=== PATIENT | female | born 1995 | race Caucasian/White ===

== ENCOUNTER 2019-02-10 19:00 | Emergency (ER) | payer OTHER ==
[2019-02-10 19:04] VITALS: BMI 36.6
[2019-02-10 19:07] VITALS: RESP 18
--- NOTE | 2019-02-10 19:17 | ED PDOC ---
Arrival/HPI <Danny Ramos - Last Filed: 02/10/19 21:34> - General Historian: Patient - History of Present Illness Narrative History of Present Illness (Text): 02/10/19 19:14 23yr old female with no significant pmh presents complaining of generalized bodyaches and sore throat since this morning. pt states she developed a cold sore today. pt states she has applied an otc medication for the cold sore and has been drinking pedialyte today. Patient denies taking any pain medications to relieve her generalized body aches. pt denies cough. no dizziness. pt c/o fatigue. pt denies abdominal pain. no urinary symptoms. no cp or sob. no sick contacts. pt c/o subjective fevers at home. no other complaints. Time/Duration: 24 hours Symptom Onset: Sudden Symptom Course: Unchanged Activities at Onset: Light Context: Home <Monika Ortega - Last Filed: 02/10/19 23:20> - General Chief Complaint: Weakness/Neurological Deficit Time Seen by Provider: 02/10/19 19:01 Past Medical History - Provider Review Nursing Documentation Reviewed: Yes - Travel History Have you recently traveled outside [place] w/in the past 3 mons?: No - Infectious Disease Hx of Infectious Diseases: None - Psychiatric Hx Substance Use: No <Monika Ortega - Last Filed: 02/10/19 23:20> Family/Social History - Physician Review Nursing Documentation Reviewed: Yes Family/Social History: Unknown Family HX Smoking Status: Never Smoked Hx Alcohol Use: No Hx Substance Use: No <Monika Ortega - Last Filed: 02/10/19 23:20> Allergies/Home Meds <Danny Ramos - Last Filed: 02/10/19 21:34> <Monika Ortega - Last Filed: 02/10/19 23:20> Allergies/Adverse Reactions: Allergies No Known Allergies Allergy (Verified 02/10/19 19:04) Review of Systems - Physician Review All systems were reviewed & negative as marked: Yes - Review of Systems Constitutional: Fatigue. absent: Fevers ENT: Sore Throat, Sinus Congestion Respiratory: absent: SOB, Cough Cardiovascular: absent: Chest Pain, Palpitations Gastrointestinal: absent: Abdominal Pain, Diarrhea, Nausea, Vomiting Genitourinary Female: absent: Dysuria, Frequency, Hematuria Musculoskeletal: Other (generalized body aches). absent: Arthralgias, Back Pain, Neck Pain Skin: absent: Rash, Pruritis Neurological: absent: Headache, Dizziness Psychiatric: absent: Anxiety, Depression <Monika Ortega - Last Filed: 02/10/19 23:20> Physical Exam Vital Signs Temp Pulse Resp BP Pulse Ox 02/10/19 21:02 98.2 F 87 18 153/111 H 100 02/10/19 19:04 99.2 F 112 H 18 175/109 H 95 <Danny Ramos - Last Filed: 02/10/19 21:34> Vital Signs Reviewed: Yes Vital Signs Temp Pulse Resp BP Pulse Ox 02/10/19 19:04 99.2 F 112 H 18 175/109 H 95 Temperature: Afebrile Blood Pressure: Hypertensive Pulse: Tachycardic Respiratory Rate: Normal Appearance: Positive for: Well-Appearing, Non-Toxic, Comfortable Pain Distress: Mild Mental Status: Positive for: Alert and Oriented X 3 - Systems Exam Head: Present: Atraumatic, Normocephalic Pupils: Present: PERRL Extroacular Muscles: Present: EOMI Conjunctiva: Present: Normal Ears: Present: Normal, NORMAL TM. No: Erythema Mouth: Present: Moist Mucous Membranes. No: Normal Lips (blister noted to lower lip) Pharnyx: Present: Normal. No: ERYTHEMA, EXUDATE, TONSILS ENLARGED Nose (External): Present: Atraumatic Nose (Internal): Present: Normal Inspection, Engorged, Rhinorrhea, Other (nasal congestion) Neck: Present: Normal Range of Motion, Trachea Midline. No: Lymphadenopathy Respiratory/Chest: Present: Clear to Auscultation, Good Air Exchange. No: Respiratory Distress, Accessory Muscle Use Cardiovascular: Present: Regular Rate and Rhythm, Normal S1, S2. No: Murmurs Abdomen: No: Tenderness, Distention, Peritoneal Signs, Rebound, Guarding Back: Present: Normal Inspection Upper Extremity: Present: Normal Inspection. No: Cyanosis, Edema Lower Extremity: Present: Normal Inspection. No: Edema Neurological: Present: GCS=15, Speech Normal Skin: Present: Warm, Dry, Normal Color Psychiatric: Present: Alert, Oriented x 3 <Monika Ortega - Last Filed: 02/10/19 23:20> Medical Decision Making - Lab Interpretations Lab Results: Total Bilirubin 0.2 mg/dL (0.2-1.3) 02/10/19 20:20 AST 39 U/L (14-36) H 02/10/19 20:20 ALT 32 U/L (7-56) 02/10/19 20:20 Alkaline Phosphatase 74 U/L (38-126) 02/10/19 20:20 Total Protein 8.1 g/dL (5.8-8.3) 02/10/19 20:20 Albumin 4.2 g/dL (3.0-4.8) 02/10/19 20:20 Globulin 3.9 gm/dL 02/10/19 20:20 Albumin/Globulin Ratio 1.1 (1.1-1.8) 02/10/19 20:20 Urine Color Light yellow (YELLOW) 02/10/19 19:30 Urine Appearance Clear (CLEAR) 02/10/19 19:30 Urine pH 7.0 (4.7-8.0) 02/10/19 19:30 Ur Specific [place] 1.010 (1.005-1.035) 02/10/19 19:30 Urine Protein Trace mg/dL (<30 mg/dL) H 02/10/19 19:30 Urine Glucose (UA) 250 mg/dL (NEGATIVE) H 02/10/19 19:30 Urine Ketones Negative mg/dL (NEGATIVE) 02/10/19 19:30 Urine Blood Negative (NEGATIVE) 02/10/19 19:30 Urine Nitrate Negative (NEGATIVE) 02/10/19 19:30 Urine Bilirubin Negative (NEGATIVE) 02/10/19 19:30 Urine Urobilinogen 0.2 E.U./dL (<1 E.U./dL) 02/10/19 19:30 Ur Leukocyte Esterase Negative Jaime/uL (NEGATIVE) 02/10/19 19:30 Urine RBC None /hpf (0-2) 02/10/19 19:30 Urine WBC None /hpf (0-6) 02/10/19 19:30 Ur Epithelial Cells 1 - 3 /hpf (0-5) 02/10/19 19:30 - Medication Orders Current Medication Orders: Discontinued Medications Acetaminophen (Tylenol 325mg Tab) 975 mg PO STAT STA Stop: 02/10/19 19:28 Last Admin: 02/10/19 19:36 Dose: 975 mg MAR Pain/Vitals Document 02/10/19 19:36 RG (Rec: 02/10/19 19:39 RG [id number]) Location Pain Location Body Site Generalized Sodium Chloride (Sodium Chloride 0.9%) 1,000 mls @ 999 mls/hr IV .Q1H1M STA Stop: 02/10/19 21:05 Last Admin: 02/10/19 20:20 Dose: 999 mls/hr eMAR Start Stop Document 02/10/19 20:20 RG (Rec: 02/10/19 20:36 RG [id number]) Intravenous Solution Start Date 02/10/19 Start Time 20:20 <Danny Ramos - Last Filed: 02/10/19 21:34> ED Course and Treatment: 02/10/19 19:13 Patient is nontoxic well-appearing. C/o flu-like symptoms General body aches, sore throat. Patient found to be hypertensive in the emergency room. Patient states that she has been told multiple times That she has been hypertensive but she states it is only when she is sick and then the blood pressure goes down when she is healthy again. pt states she has never followed up with PMD for this and states she currently doesnt have a PMD. tylenol PO UA: Positive glucose no leukocytes. Patient spilling glucose into the urine will check basic labs. CBC: Within normal limits CMP: Glucose is 216. rapid flu; negative Rapid strep negative Tamiflu po Patient reassessment: Pt feeling better; vitals stable. Patient still with slightly elevated blood pressure. discussed all results with patient. I advised the patient of elevated blood pressure and elevated glucose levels. I advised the patient that she must follow-up with a primary care physician for reevaluation of her blood pressure. Patient was advised that she must follow-up with a primary care physician fly albarraning her elevated glucose levels and she will need to have fasting blood test to confirm diabetes since the patient ate prior to this test. Patient was advised to take Tamiflu twice daily. Patient was advised to increase fluids. Patient was advised to exercise and eat healthier. Patient was advised to use Abreva for her fever blister. Patient verbalizes understanding of discharge instructions and need for immediate followup. all aspects of this case were discussed the attending of record. IMPRESSION; Influenza, elevated blood pressure, elevated glucose Motrin one tablet every 6 hours as needed for pain/fever reduction Tamiflu: 1 capsule twice daily x5 days Increase fluids Followup with primary care physician the next 2 days regarding elevated blood pressure and elevated glucose level. Return if symptoms worsen persist or if new symptoms develop: Continued high fevers, dizziness, weakness, chest pain or shortness of breath vomiting/diarrhea, or if any other concerning symptoms develop Reassessment Condition: Re-examined, Improved <Monika Ortega - Last Filed: 02/10/19 23:20> - PA / [employer] / Resident Statement MD/DO has reviewed & agrees with the documentation as recorded. <Danny Ramos - Last Filed: 02/10/19 21:34> - Scribe Statement The provider has reviewed the documentation as recorded by the Roberta Emery All medical record entries made by the Roberta were at my direction and personally dictated by me. I have reviewed the chart and agree that the record accurately reflects my personal performance of the history, physical exam, medical decision making, and the department course for this patient. I have also personally directed, reviewed, and agree with the discharge instructions and disposition. <Monika Ortega - Last Filed: 02/10/19 23:20> Disposition/Present on Arrival <Danny Ramos - Last Filed: 02/10/19 21:34> - Present on Arrival Any Indicators Present on Arrival: No History of DVT/PE: No History of Uncontrolled Diabetes: No Urinary Catheter: No History of Decub. Ulcer: No History Surgical Site Infection Following: None - Disposition Have Diagnosis and Disposition been Completed?: Yes Disposition Time: 22:50 Patient Plan: Discharge <Monika Ortega - Last Filed: 02/10/19 23:20> - Disposition Diagnosis: Flu-like symptoms, Elevated BP without diagnosis of hypertension, Elevated glucose level, Cold sore Disposition: HOME/ ROUTINE Patient Problems: Current Active Problems Problem Status Onset Cold sore Acute Elevated BP without diagnosis of hypertension Acute Elevated glucose level Acute Flu-like symptoms Acute Condition: GOOD Discharge Instructions (ExitCare): Controlling Your Blood Pressure Through Lifestyle, Cold Sores (Oral Herpes) (DC), Flu, Adult (DC) Additional Instructions: Motrin one tablet every 6 hours as needed for pain/fever reduction Tamiflu: 1 capsule twice daily x5 days Increase fluids Followup with primary care physician the next 2 days regarding elevated blood pressure and elevated glucose level. Return if symptoms worsen persist or if new symptoms develop: Continued high fevers, dizziness, weakness, chest pain or shortness of breath vomiting/diarrhea, or if any other concerning symptoms develop Prescriptions: Ibuprofen [Motrin] 600 mg PO Q6H PRN #20 tab PRN Reason: pain/fever reduction Oseltamivir Cap [Tamiflu] 75 mg PO BID #10 cap Referrals: Carmen Mcmahan MD [Medical Doctor] - Follow up with primary [facility] [Outside] - Follow up with primary Cam,Radha Raphael MD [Medical Doctor] - Follow up with primary Forms: [employer] ([place]), WORK NOTE
[2019-02-10 19:45] LABS: URINE APPEARANCE CLEAR (CLEAR); URINE BILIRUBIN NEGATIVE (NEGATIVE); URINE BLOOD NEGATIVE (NEGATIVE); URINE COLOR LIGHT YELLOW (YELLOW); URINE GLUCOSE (UA) 250 mg/dL (NEGATIVE); URINE LEUKOCYTE ESTERASE NEGATIVE Leu/uL (NEGATIVE); URINE PROTEIN TRACE mg/dL (<30 mg/dL); URINE UROBILINOGEN 0.2 E.U./dL (<1 E.U./dL)
[2019-02-10 19:59] LABS: INFLUENZA A B NEGATIVE FOR FLU A/B (NEGATIVE)
[2019-02-10] MEDS ORDERED: Sodium Chloride 0.9% 1,000 ML IV STA (20:05)
[2019-02-10 20:41] LABS: BASO # 0.02 K/mm3 (0.0-2.0); BASO % 0.3 % (0.0-3.0); EOS # 0.1 (0.0-0.7); EOS % 0.7 % (1.5-5.0); HEMOGLOBIN 14.8 g/dL (12.0-16.0); LYMPH % 27.9 % (22.0-35.0); MEAN CORPUSCULAR HEMOGLOBIN 27.9 pg (25.0-35.0); MEAN CORPUSCULAR HGB CONC 33.6 g/dl (31.0-37.0); MEAN PLATELET VOLUME 11.4 fl (7.0-11.0); MONO # 0.7 (0.1-0.6); MONO % 10.3 % (1.0-6.0); RBC 5.3 10^6/uL (3.5-6.1); RED CELL DISTRIBUTION WIDTH 13.3 % (11.5-14.5); WHITE BLOOD COUNT 7.2 10^3/uL (4.5-11.0)
[2019-02-10 20:51] LABS: ALB/GLOB RATIO 1.1 (1.1-1.8); ALBUMIN 4.2 g/dL (3.0-4.8); ALT/SGPT 32 U/L (7-56); AST/SGOT 39 U/L (14-36); BLOOD UREA NITROGEN 6 mg/dL (7-21); CALCIUM 9.5 mg/dL (8.4-10.5); GFR NON-AFRICAN AMERICAN > 60
[2019-02-10 21:07] VITALS: TEMP 98.2; O2SAT 100
[2019-02-10 21:59] VITALS: BP 147/88; PULSE 90
== END 2019-02-10 23:15 | disposition home or self-care (01) ==
LOC: ED 19:00
DX: J11.1 Influenza due to unidentified influenza virus with other respiratory manifestations (principal); R03.0 Elevated blood-pressure reading, without diagnosis of hypertension; R73.9 Hyperglycemia, unspecified; B00.1 Herpesviral vesicular dermatitis
CPT/HCPCS: 80053; 81001; 81025; 85025; 87070; 87430; 87804; 96374; 99285; J1885; J7030

== ENCOUNTER 2019-02-12 11:44 | Emergency (ER) | payer MEDICAID, OTHER ==
[2019-02-12 11:44] VITALS: BMI 36.6
[2019-02-12 11:57] VITALS: TEMP 98.4
[2019-02-12] MEDS ORDERED: Sodium Chloride 0.9% 1,000 ML IV STA (13:07)
--- NOTE | 2019-02-12 13:09 | ED PDOC ---
Arrival/HPI - General Chief Complaint: Flu-like Symptoms Historian: Patient - History of Present Illness Narrative History of Present Illness (Text): 02/12/19 13:11 23 year old female, with no significant past medical history, presents to the ED complaining of flu-like symptoms. Patient reports generalized bodyaches, sore throat, weakness, headache, nausea, vomiting, and diarrhea. Patient notes she presented to ED for the same symptoms 2 days ago and was prescribed Tamiflu twice a day, which patient has been compliant with, with no improvement in sy mptoms. Patient denies any, hematuria, dysuria, chest pain, shortness of breath, dyspnea on exertion, abdominal pain, back pain, neck pain, or any other complaints. Time/Duration: < week (since Friday) Symptom Course: Unchanged Activities at Onset: Light Context: Home Past Medical History - Provider Review Nursing Documentation Reviewed: Yes - Infectious Disease Hx of Infectious Diseases: None - Psychiatric Hx Substance Use: No Family/Social History - Physician Review Nursing Documentation Reviewed: Yes Family/Social History: Unknown Family HX Smoking Status: Never Smoked Hx Alcohol Use: No Hx Substance Use: No Allergies/Home Meds Allergies/Adverse Reactions: Allergies No Known Allergies Allergy (Verified 02/16/19 21:23) Review of Systems - Physician Review All systems were reviewed & negative as marked: Yes - Review of Systems Constitutional: Normal. absent: Weight Change, Night Sweats Eyes: absent: Vision Changes, Eye Pain ENT: absent: Hearing Changes Respiratory: absent: SOB, Cough Cardiovascular: absent: Chest Pain Gastrointestinal: Diarrhea, Nausea, Vomiting. absent: Abdominal Pain Genitourinary Female: absent: Dysuria, Hematuria Musculoskeletal: absent: Back Pain Skin: absent: Rash Neurological: Headache Endocrine: absent: Diaphoresis, Polyuria Hemo/Lymphatic: absent: Adenopathy, Easy Bleeding Psychiatric: absent: Anxiety, Depression Physical Exam Vital Signs Reviewed: Yes Vital Signs Temp Pulse Resp BP Pulse Ox 02/12/19 11:57 98.4 F 102 H 18 148/99 H 98 Temperature: Afebrile Blood Pressure: Hypertensive Pulse: Tachycardic Respiratory Rate: Normal Appearance: Positive for: Well-Appearing, Non-Toxic, Comfortable Mental Status: Positive for: Alert and Oriented X 3 - Systems Exam Head: Present: Atraumatic, Normocephalic, Other (sunken eyes) Pupils: Present: PERRL Extroacular Muscles: Present: EOMI Conjunctiva: Present: Normal Mouth: No: Moist Mucous Membranes (Dry Mucous Membranes) Neck: Present: Normal Range of Motion Respiratory/Chest: Present: Clear to Auscultation, Good Air Exchange. No: Respiratory Distress, Accessory Muscle Use Cardiovascular: Present: Regular Rate and Rhythm, Normal S1, S2. No: Murmurs Abdomen: No: Tenderness, Distention, Peritoneal Signs Upper Extremity: Present: Normal Inspection. No: Cyanosis, Edema Lower Extremity: Present: Normal Inspection. No: Edema Neurological: Present: GCS=15, CN II-XII Intact, Speech Normal Skin: Present: Pale (very pale) Psychiatric: Present: Alert, Oriented x 3, Normal Insight, Normal Concentration Medical Decision Making ED Course and Treatment: 02/12/19 13:25 Impression: 23 year old female who presents to the ED for flu-like symptoms. Differential Diagnosis included but are not limited to: --Viral respiratory tract illness --PNA Plan: -- Labs -- Chest X-Ray -- Decadron Injection -- Benadryl -- Toradol -- Reglan -- IV Fluids -- Urine Culture -- Urine Test -- Rapid Flu A/B -- Urinalysis -- Reassess and disposition Prior Visits: Notes and results from previous visits were reviewed. Progress Notes: 02/12/19 07:05 Labs reviewed with leukocytosis of 15 noted with no findings on CXR, UA or electrolyte disturbances. Patient advised to stop taking initial antibiotic and start taking her Z get. She is advised to follow up with her PCP. Scripts provided and opportunity for questions given and answered. She demonstrates understanding. She is stable for discharge. - Lab Interpretations Lab Results: 02/12/19 13:12 02/12/19 13:12 Lab Results 02/12/19 13:12: Hemoglobin A1c 7.2 H 02/12/19 13:12: Influenza Typ A,B (EIA) Negative for flu a/b 02/12/19 13:12: Sodium 136, Potassium 3.8, Chloride 99, Carbon Dioxide 26, Anion Gap 15, BUN 7, Creatinine 0.6 L, Est GFR ( Amer) > 60, Est GFR (Non-Af Amer) > 60, Random Glucose 130 H, Calcium 9.2, Total Bilirubin 0.5, AST 30, ALT 25, Alkaline Phosphatase 74, Total Protein 7.9, Albumin 4.2, Globulin 3.7, Albumin/Globulin Ratio 1.1 02/12/19 13:12: WBC 15.3 H D, RBC 5.24, Hgb 14.7, Hct 43.5, MCV 83.0, MCH 28.1, MCHC 33.8, RDW 13.4, Plt Count 212, MPV 10.5, Neut % (Auto) 74.1 H, Lymph % (Auto) 15.9 L, Reynolds % (Auto) 9.9 H, Eos % (Auto) 0.0 L, Baso % (Auto) 0.1, Lymph # (Auto) 2.4, Reynolds # (Auto) 1.5 H, Eos # (Auto) 0.0, Baso # (Auto) 0.01, Absolute Neuts (auto) 11.31 H 02/12/19 13:05: Urine Color Light yellow, Urine Appearance Clear, Urine pH 6.5, Ur Specific [place] <= 1.005, Urine Protein Negative, Urine Glucose (UA) Negative, Urine Ketones Negative, Urine Blood Negative, Urine Nitrate Negative, Urine Bilirubin Negative, Urine Urobilinogen 0.2, Ur Leukocyte Esterase Small H, Urine RBC 0 - 2, Urine WBC 2 - 5, Ur Epithelial Cells 4 - 5, Urine Bacteria Trace I have reviewed the lab results: Yes - RAD Interpretation Narrative RAD Interpretations (Text): 02/12/19 15:22 Chest X-Ray IMPRESSION: No active disease. Radiology Orders: 02/12/19 13:00 CHEST PORTABLE [RAD] Stat - Medication Orders Current Medication Orders: Sodium Chloride (Sodium Chloride 0.9%) 1,000 mls @ 999 mls/hr IV .Q1H1M STA Stop: 02/12/19 14:07 Ketorolac Tromethamine (Toradol) 30 mg IVP STAT STA Stop: 02/12/19 13:08 Metoclopramide HCl (Reglan) 10 mg IVP STAT STA Stop: 02/12/19 13:08 Discontinued Medications Azithromycin (Zithromax) 500 mg PO STAT STA; Protocol Stop: 02/12/19 14:38 Last Admin: 02/12/19 14:52 Dose: 500 mg Dexamethasone (Decadron Inj) 10 mg IVP STAT STA Stop: 02/12/19 13:20 Last Admin: 02/12/19 13:33 Dose: 10 mg IVP Administration Document 02/12/19 13:33 MA (Rec: 02/12/19 13:33 MA [id number]) Charges for Administration # of IVP Administrations 1 Diphenhydramine HCl (Benadryl) 25 mg IVP STAT STA Stop: 02/12/19 13:20 Last Admin: 02/12/19 13:32 Dose: 25 mg IVP Administration Document 02/12/19 13:32 MA (Rec: 02/12/19 13:33 MA [id number]) Charges for Administration # of IVP Administrations 1 Sodium Chloride (Sodium Chloride 0.9%) 1,000 mls @ 999 mls/hr IV .Q1H1M STA Stop: 02/12/19 14:07 Last Admin: 02/12/19 13:20 Dose: 999 mls/hr eMAR Start Stop Document 02/12/19 13:20 MA (Rec: 02/12/19 13:20 MA [id number]) Intravenous Solution Start Date 02/12/19 Start Time 13:20 Ketorolac Tromethamine (Toradol) 30 mg IVP STAT STA Stop: 02/12/19 13:08 Last Admin: 02/12/19 13:20 Dose: 30 mg MAR Pain Assessment Document 02/12/19 13:20 MA (Rec: 02/12/19 13:20 MA [id number]) Pain Reassessment Is this a pain reassessment? Yes Sleep Is patient sleeping during reassessment? No Presence of Pain Presence of Pain Yes Pain Scale Used Protocol: [facility] Pain Scale Used Numeric Location Pain Location Body Infection Control Coordinator Description Intensity of Pain at present 5 Pain Behavior Grasping Site Rubbing Site Aggravating Factors Changing Position IVP Administration Document 02/12/19 13:20 MA (Rec: 02/12/19 13:20 MA [id number]) Charges for Administration # of IVP Administrations 1 Re-Assess: MAR Pain Assessment Document 02/12/19 14:20 MA (Rec: 02/12/19 14:41 MA [id number]) Pain Reassessment Is this a pain reassessment? Yes Sleep Is patient sleeping during reassessment? No Presence of Pain Presence of Pain No Pain Scale Used Protocol: PSCALES Pain Scale Used Numeric Location Pain Location Body Site Abdomen Description Description Intermittent Intensity of Pain at present 0 Metoclopramide HCl (Reglan) 10 mg IVP STAT STA Stop: 02/12/19 13:08 Last Admin: 02/12/19 13:20 Dose: 10 mg IVP Administration Document 02/12/19 13:20 MA (Rec: 02/12/19 13:20 MA [id number]) Charges for Administration # of IVP Administrations 1 - Scribe Statement The provider has reviewed the documentation as recorded by the Scribe Ignacio Graham Provider Scribe Attestation: All medical record entries made by the Scribe were at my direction and personally dictated by me. I have reviewed the chart and agree that the record accurately reflects my personal performance of the history, physical exam, medical decision making, and the department course for this patient. I have also personally directed, reviewed, and agree with the discharge instructions and disposition. Disposition/Present on Arrival - Present on Arrival Any Indicators Present on Arrival: No History of DVT/PE: No History of Uncontrolled Diabetes: No Urinary Catheter: No History of Decub. Ulcer: No History Surgical Site Infection Following: None - Disposition Have Diagnosis and Disposition been Completed?: Yes Diagnosis: Headache, Respiratory tract infection Disposition: HOME/ ROUTINE Disposition Time: 15:07 Patient Plan: Discharge Patient Problems: Current Active Problems Problem Status Onset Dehydration Acute Enteritis Acute Leukocytosis Acute UTI (urinary tract infection) Acute Condition: IMPROVED Discharge Instructions (ExitCare): Headache, Adult (DC), Bacterial Upper Respiratory Infection, Adult (DC) Print Language: GREEK Additional Instructions: All medical record entries made by the Scribe were at my direction and personally dictated by me. I have reviewed the chart and agree that the record accurately reflects my personal performance of the history, physical exam, medical decision making, and the department course for this patient. I have also personally directed, reviewed, and agree with the discharge instructions and disposition. Please STOP taking the Tamiflu and START taking the Z-Get Please return to clinic in 3-5 days Prescriptions: Azithromycin [Z-Get] 250 mg PO DAILY #6 tab Methylprednisolone [Medrol Dose Pack (21 tabs)] 4 mg PO DAILY #21 mg Referrals: Carmen Mcmahan MD [Medical Doctor] - Follow up with primary [facility] [place] [Outside] - Follow up with primary Forms: [employer] Connect ([place]), SCHOOL NOTE
[2019-02-12 13:19] LABS: PH,URINE 6.5 (4.7-8.0); URINE BILIRUBIN NEGATIVE (NEGATIVE); URINE BLOOD NEGATIVE (NEGATIVE); URINE GLUCOSE (UA) NEGATIVE (NEGATIVE); URINE LEUKOCYTE ESTERASE SMALL Leu/uL (NEGATIVE); URINE PROTEIN NEGATIVE mg/dL (<30 mg/dL); URINE UROBILINOGEN 0.2 E.U./dL (<1 E.U./dL)
[2019-02-12] MEDS ORDERED: DiphenhydrAMINE 50 mg/ml Inj IVP STA (13:19)
[2019-02-12 13:20] LABS: URINE APPEARANCE CLEAR (CLEAR); URINE COLOR LIGHT YELLOW (YELLOW)
[2019-02-12 13:32] LABS: BASO # 0.01 K/mm3 (0.0-2.0); BASO % 0.1 % (0.0-3.0); HEMOGLOBIN 14.7 g/dL (12.0-16.0); LYMPH # 2.4 (1.2-3.4); LYMPH % 15.9 % (22.0-35.0); MEAN CORPUSCULAR HEMOGLOBIN 28.1 pg (25.0-35.0); MEAN CORPUSCULAR HGB CONC 33.8 g/dl (31.0-37.0); MEAN PLATELET VOLUME 10.5 fl (7.0-11.0); MONO # 1.5 (0.1-0.6); MONO % 9.9 % (1.0-6.0); RBC 5.24 10^6/uL (3.5-6.1); RED CELL DISTRIBUTION WIDTH 13.4 % (11.5-14.5); WHITE BLOOD COUNT 15.3 10^3/uL (4.5-11.0)
[2019-02-12 13:33] LABS: URINE BACTERIA TRACE /hpf; URINE RBC 0 - 2 /hpf (0-2)
[2019-02-12 13:40] LABS: ALB/GLOB RATIO 1.1 (1.1-1.8); ALBUMIN 4.2 g/dL (3.0-4.8); ALT/SGPT 25 U/L (7-56); AST/SGOT 30 U/L (14-36); BLOOD UREA NITROGEN 7 mg/dL (7-21); CALCIUM 9.2 mg/dL (8.4-10.5); GFR NON-AFRICAN AMERICAN > 60
[2019-02-12 14:05] VITALS: RESP 16
--- NOTE | 2019-02-12 14:10 | RAD ---
Date of service: 02/12/2019 HISTORY: cough COMPARISON: No prior. TECHNIQUE: 1 view obtained. FINDINGS: LUNGS: No active pulmonary disease. PLEURA: No significant pleural effusion identified, no pneumothorax apparent. CARDIOVASCULAR: No aortic atherosclerotic calcification present. Normal cardiac size. No pulmonary vascular congestion. OSSEOUS STRUCTURES: No significant abnormalities. VISUALIZED UPPER ABDOMEN: Normal. OTHER FINDINGS: None. IMPRESSION: No active disease.
[2019-02-12 14:57] VITALS: BP 136/93; PULSE 89; O2SAT 97
== END 2019-02-12 15:22 | disposition home or self-care (01) ==
LOC: ED 11:44
DX: R51 Headache (principal); J98.8 Other specified respiratory disorders
CPT/HCPCS: 71045; 80053; 81001; 81025; 83036; 85025; 87086; 87804; 96374; 96375; 99284; J1100; J1200; J1885; J2765; J7030

== ENCOUNTER 2019-02-15 09:14 | Emergency (ER) | payer MEDICAID, OTHER ==
[2019-02-15 09:14] VITALS: BMI 36.6
[2019-02-15 09:37] VITALS: BP 139/96; RESP 18; TEMP 98.2; O2SAT 100
--- NOTE | 2019-02-15 10:10 | ED PDOC ---
Arrival/HPI - General Chief Complaint: Abnormal Skin Integrity Historian: Patient - History of Present Illness Narrative History of Present Illness (Text): 02/15/19 10:08 23 y/o female, no significant pmh, nkda, here today for the soreness on the lip x 4 days. Pt. stated that she was having sorethroat/fever/fatigue/cold sore initially, other symptoms resolved, now only remains with the cold sore. Pt. was on the tamiflu x 2 days, change to zithromax and medrodose robert now, only having painful lower lip lesion now, no night sweat, no dizziness, no change in vision, no other medical or psychological complaints. Past Medical History - Provider Review Nursing Documentation Reviewed: Yes - Infectious Disease Hx of Infectious Diseases: None - Reproductive Menopause: No - Cardiac Hx Cardiac Disorders: No - Psychiatric Hx Substance Use: No Family/Social History - Physician Review Nursing Documentation Reviewed: Yes Family/Social History: Unknown Family HX Smoking Status: Never Smoked Hx Alcohol Use: No Hx Substance Use: No Allergies/Home Meds Allergies/Adverse Reactions: Allergies No Known Allergies Allergy (Verified 02/10/19 19:04) Review of Systems - Review of Systems Constitutional: absent: Fatigue, Fevers Eyes: absent: Vision Changes ENT: absent: Hearing Changes Respiratory: absent: SOB, Cough Cardiovascular: absent: Chest Pain Gastrointestinal: absent: Abdominal Pain, Nausea, Vomiting Skin: Skin Lesions. absent: Rash, Pruritis Neurological: absent: Headache, Dizziness Psychiatric: absent: Anxiety, Depression, Suicidal Ideation Physical Exam Vital Signs Reviewed: Yes Vital Signs Temp Pulse Resp BP Pulse Ox 02/15/19 09:32 98.2 F 99 H 18 139/96 H 100 Temperature: Afebrile Blood Pressure: Hypertensive Pulse: Regular Respiratory Rate: Normal Appearance: Positive for: Well-Appearing, Non-Toxic, Comfortable Pain Distress: Moderate Mental Status: Positive for: Alert and Oriented X 3 - Systems Exam Head: Present: Atraumatic, Normocephalic Pupils: Present: PERRL Extroacular Muscles: Present: EOMI Conjunctiva: Present: Normal Mouth: Present: Moist Mucous Membranes, Normal Tounge, Normal Teeth. No: Drooling, Trismus, Normal Lips (visible lower lip visible healed lesions noted associated with lower lip healing cold sore lesion with ruptured blister) Neck: Present: Normal Range of Motion Respiratory/Chest: Present: Clear to Auscultation, Good Air Exchange. No: Respiratory Distress, Accessory Muscle Use Cardiovascular: Present: Regular Rate and Rhythm, Normal S1, S2. No: Murmurs, Tachycardic Abdomen: No: Tenderness, Distention, Peritoneal Signs, Rebound, Guarding Back: Present: Normal Inspection. No: CVA Tenderness, Midline Tenderness, Paraspinal Tenderness, Pain with Leg Raise, Decubitus Ulcer Upper Extremity: Present: Normal Inspection, Normal ROM, NORMAL PULSES, Capil ki Refill < 2s. No: Cyanosis, Edema, Deformity Lower Extremity: Present: Normal Inspection, NORMAL PULSES, Normal ROM, Neurovascularly Intact, Capillary Refill < 2 s. No: Edema, Deformity Neurological: Present: GCS=15, CN II-XII Intact, Speech Normal, Motor Func Grossly Intact, Normal Cerebellar Funct, Gait Normal, Memory Normal Skin: Present: Warm, Dry, Normal Color. No: Rashes Psychiatric: Present: Alert, Oriented x 3, Normal Insight, Normal Concentration Medical Decision Making ED Course and Treatment: 02/15/19 10:12 -HSV culture for skin is not available as I spoke to the laboratory. -Mycoplasma IGG and IGM -CBC as she had elevated CBC previously -Viscious lidocaine for pain control -Pt. had been applying abreva at home as well. 02/15/19 12:32 -Urine hcg is negative -WBC 11 from 15 -I spoke to Dr. Herring (infectious disease doctor), discussed about the case/labs results, recommend discharge home with valtrex 2gm po bid x 1 day and observed for one week. If not resolved, then she would need further work up. -Discharge home with valtrex, motrin, continue abreva, follow up with your own pmd and infectious disease doctor Dr. Herring for further evaluation within 2 days, return to the ER for any new or worsening signs or symptoms. - PA / DIRECTOR DERMATOLOGY / Resident Statement /DO has reviewed & agrees with the documentation as recorded. Disposition/Present on Arrival - Present on Arrival Any Indicators Present on Arrival: No History of DVT/PE: No History of Uncontrolled Diabetes: No Urinary Catheter: No History of Decub. Ulcer: No History Surgical Site Infection Following: None - Disposition Have Diagnosis and Disposition been Completed?: Yes Diagnosis: Cold sore Disposition: HOME/ ROUTINE Disposition Time: 12:34 Patient Plan: Discharge Patient Problems: Current Active Problems Problem Status Onset Cold sore Acute Condition: GOOD Discharge Instructions (ExitCare): Cold Sores (Oral Herpes) (DC) Additional Instructions: -Discharge home with valtrex, motrin, continue abreva, follow up with your own pmd and infectious disease doctor Dr. Herring for further evaluation within 2 days, return to the ER for any new or worsening signs or symptoms. Prescriptions: Ibuprofen [Motrin] 600 mg PO QID PRN #30 tab PRN Reason: Other Valacyclovir HCl [Valtrex] 2 gm PO BID #4 tablet Referrals: Bhavesh Herring MD [Staff Provider] - Follow up with primary [facility] [place] - Follow up with primary Forms: [facility] ([place]), WORK NOTE
[2019-02-15 11:22] LABS: BASO # 0.1 K/mm3 (0.0-2.0); BASO % 0.9 % (0.0-3.0); EOS % 0.1 % (1.5-5.0); HEMOGLOBIN 17.1 g/dL (12.0-16.0); LYMPH # 3.3 (1.2-3.4); LYMPH % 29.1 % (22.0-35.0); MEAN CELL VOLUME 82.2 fl (80.0-105.0); MEAN CORPUSCULAR HGB CONC 34.1 g/dl (31.0-37.0); MEAN PLATELET VOLUME 11.1 fl (7.0-11.0); MONO # 1.5 (0.1-0.6); MONO % 13.2 % (1.0-6.0); RBC 6.11 10^6/uL (3.5-6.1); RED CELL DISTRIBUTION WIDTH 13.4 % (11.5-14.5); WHITE BLOOD COUNT 11.5 10^3/uL (4.5-11.0)
[2019-02-15 12:44] VITALS: PULSE 92
== END 2019-02-15 12:47 | disposition home or self-care (01) ==
LOC: ED 09:14
DX: B00.1 Herpesviral vesicular dermatitis (principal)

== ENCOUNTER 2019-02-16 20:50 | Observation (INO) | payer MEDICAID, OTHER ==
[2019-02-16 20:50] VITALS: BMI 36.6
--- NOTE | 2019-02-16 21:35 | ED PDOC ---
Arrival/HPI - General Time Seen by Provider: 02/16/19 21:00 Historian: Patient - History of Present Illness Narrative History of Present Illness (Text): 02/17/19 00:14 23 y/o with no significant PMH presents to the Emergency department c/o chest and abdominal pain x 1 day. Pt drank an organic nutrient smoothie yesterday afternoon and soon after began having brown, watery, nonbloody diarrhea with associated burning epigastric pain. Pt was seen here 3 times over the last 6 days for evaluation of herpes labialis and an upper respiratory infection that was treated successfully with azithromycin. Pt taking valcyclovir, last dose this evening. Denies vomiting, palpitations, vision changes, headache, dizziness, urinary symptoms, cough, SOB, back pain, or any other associated symptoms. Past Medical History - Provider Review Nursing Documentation Reviewed: Yes - Infectious Disease Hx of Infectious Diseases: None - Cardiac Hx Cardiac Disorders: No - Psychiatric Hx Substance Use: No Family/Social History - Physician Review Nursing Documentation Reviewed: Yes Family/Social History: No Known Family HX Smoking Status: Never Smoked Hx Alcohol Use: No Hx Substance Use: No Allergies/Home Meds Allergies/Adverse Reactions: Allergies No Known Allergies Allergy (Verified 02/16/19 21:23) Review of Systems - Physician Review All systems were reviewed & negative as marked: Yes - Review of Systems Constitutional: Normal. absent: Fatigue, Fevers Eyes: Normal. absent: Vision Changes, Photophobia, Eye Pain ENT: Normal. absent: Sore Throat, Sinus Congestion Respiratory: Normal. absent: SOB, Cough Cardiovascular: Chest Pain. absent: Palpitations, Syncope Gastrointestinal: Abdominal Pain, Stool Changes, Diarrhea, Nausea, Appetite Changes. absent: Vomiting, Hematochezia, Hematemesis Genitourinary Female: Normal. absent: Dysuria, Frequency, Hematuria, Vaginal Bleeding, Vaginal Discharge Musculoskeletal: Normal. absent: Back Pain, Neck Pain Skin: Normal. absent: Rash Neurological: Normal. absent: Headache, Dizziness Endocrine: Normal. absent: Diaphoresis Physical Exam Vital Signs Reviewed: Yes Vital Signs Temp Pulse Resp BP Pulse Ox 02/16/19 21:23 98.6 F 120 H 19 153/107 H 98 Temperature: Afebrile Blood Pressure: Hypertensive Pulse: Tachycardic Respiratory Rate: Normal Appearance: Positive for: Well-Appearing, Non-Toxic, Comfortable Pain Distress: None Mental Status: Positive for: Alert and Oriented X 3 - Systems Exam Head: Present: Atraumatic, Normocephalic, Other (eyes sunken) Pupils: Present: PERRL Extroacular Muscles: Present: EOMI Conjunctiva: Present: Normal Mouth: Present: Dry. No: Normal Lips (cold sore to lower lip) Nose (External): Present: Atraumatic Nose (Internal): Present: Normal Inspection Neck: Present: Normal Range of Motion. No: Meningeal Signs Respiratory/Chest: Present: Clear to Auscultation, Good Air Exchange. No: Respiratory Distress, Accessory Muscle Use Cardiovascular: Present: Regular Rate and Rhythm, Normal S1, S2, Peripheal Pulses Present Abdomen: Present: Tenderness (generalized, worst epigastric), Normal Bowel Sounds. No: Distention, Peritoneal Signs Rectal: Present: Normal Rectal Tone. No: Occult Blood, Rectal Tenderness, Gross Blood, Hemorrhoids, Fissures, Nodule/Mass/Lesions Back: Present: Normal Inspection. No: CVA Tenderness Upper Extremity: Present: Normal Inspection, Normal ROM, NORMAL PULSES, Neurovas cularly Intact, Capillary Refill < 2s. No: Cyanosis, Edema, Temperature Abnormalties Lower Extremity: Present: Normal Inspection, NORMAL PULSES, Normal ROM, Neurovascularly Intact, Capillary Refill < 2 s. No: Edema, Temperature Abnormalties Neurological: Present: GCS=15, CN II-XII Intact, Speech Normal, Motor Func Grossly Intact, Normal Sensory Function, Gait Normal Skin: Present: Warm, Dry, Normal Color. No: Rashes Lymphatic: No: Cervical Adenopathy Psychiatric: Present: Alert, Oriented x 3, Normal Insight, Normal Concentration, Normal Affect, Normal Mood Medical Decision Making ED Course and Treatment: Initial Plan: * CBC, CMP * TSH, T4 * Lipase * Troponin * UA * EKG * CXR * CT Abd/Pelvis with IV contrast * IVF * , Maalox, Pepcid * Toradol EKG shows NSR at 93; Normal intervals; No STEMI, nonspecific ST/T wave changes Bloodwork reviewed, remarkable for elevated H/H, leukocytosis at 15, glucose elevated at 187; otherwise unremarkable UA shows UTI, rocephin ordered 01:53 CT significant for enteritis. Will seek admission for leukocytosis, UTI, dehydration. 01:58 Spoke with the medical registrar and hospitalist Dr. Mcmahan who accepted patient for inpatient admission to med/surg floor with diagnosis of dehydration, leukocytosis, UTI, and enteritis. Pt updated with change in disposition. Resting comfortably in stretcher with normal vital signs at this time. - Lab Interpretations Lab Results: 02/16/19 22:21 02/16/19 22:21 Lab Results 02/16/19 22:35: Urine Color Light red, Urine Appearance Clear, Urine pH 6.5, Ur Specific [place] <= 1.005, Urine Protein 100 H, Urine Glucose (UA) Negative, Urine Ketones Negative, Urine Blood Large H, Urine Nitrate Positive H, Urine Bilirubin Negative, Urine Urobilinogen 1.0 H, Ur Leukocyte Esterase Moderate H, Urine RBC Tntc H, Urine WBC 10 - 15 H, Ur Epithelial Cells 10 - 12 H, Urine Bacteria Small 02/16/19 22:21: Free T4 1.56, TSH 3rd Generation 0.82 02/16/19 22:21: Sodium 139, Potassium 4.3, Chloride 100, Carbon Dioxide 27, Anion Gap 16, BUN 11, Creatinine 0.5 L, Est GFR ( Amer) > 60, Est GFR (Non-Af Amer) > 60, Random Glucose 187 H, Calcium 9.5, Phosphorus 3.2, Magnesium 2.1, Total Bilirubin 0.5, AST 53 H D, ALT 31, Alkaline Phosphatase 71, Troponin I < 0.01, Total Protein 8.6 H, Albumin 4.4, Globulin 4.1, Albumin/Globulin Ratio 1.1, Lipase 133 02/16/19 22:21: WBC 15.2 H D, RBC 6.14 H, Hgb 17.2 H, Hct 50.1 H, MCV 81.6, MCH 28.0, MCHC 34.3, RDW 13.1, Plt Count 289, MPV 10.7, Neut % (Auto) 69.3 H, Lymph % (Auto) 22.6, [place] % (Auto) 7.6 H, Eos % (Auto) 0.2 L, Baso % (Auto) 0.3, Lymph # (Auto) 3.4, [place] # (Auto) 1.2 H, Eos # (Auto) 0.0, Baso # (Auto) 0.05, Absolute Neuts (auto) 10.53 H I have reviewed the lab results: Yes - RAD Interpretation Narrative RAD Interpretations (Text): 02/17/19 01:52 CT Abd/Pelvis: COMMENTS: Fluid filled small bowels. Fluid-filled proximal colon. Fluid-filled stomach. The liver is of uniform attenuation without mass or defect. There is no intra or extrahepatic biliary ductal dilatation. The spleen is normal. The gallbladder is within normal limits. The pancreas is of normal contour and attenuation characteristics. There is no evidence of adrenal mass. Both kidneys demonstrate prompt and equal nephrograms. The kidneys are normal in size, shape and configuration. There is no evidence of renal or ureteral mass. No renal or ureteral calculi are identified. There is no hydroureter or hydronephrosis. No evidence for appendicitis. There is no bowel wall thickening. No evidence for small or large bowel obstruction. There is no evidence of abdominal ascites or lymphadenopathy. There is no evidence of intrinsic or extrinsic bladder mass. There is no pelvic ascites or lymphadenopathy. Images of the lung bases show no evidence of pleural or parenchymal mass. There are no pleural effusions. The bony structures are free of lytic or blastic lesions. IMPRESSION: Uncomplicated enteritis. Fluid filled small bowels. Fluid-filled proximal colon. Fluid-filled stomach. Electronically signed on Feb 17, 2019 1:50:20 AM EDT by: Day Cole M.D., Certified by [employer]EN[employer], MSK, Neuroradiology Concrete Panel Installer: Radiologist - EKG Interpretation EKG Interpretation (Text): 02/17/19 00:08 Rate 93; NSR; Normal intervals; No STEMI, nonspecific ST/T wave changes Interpreted by ED Physician: Yes Type: 12 lead EKG Disposition/Present on Arrival - Present on Arrival Any Indicators Present on Arrival: No History of DVT/PE: No History of Uncontrolled Diabetes: No Urinary Catheter: No History Surgical Site Infection Following: None - Disposition Have Diagnosis and Disposition been Completed?: No Diagnosis: Leukocytosis, UTI (urinary tract infection), Enteritis, Dehydration Disposition: HOSPITALIZED Disposition Time: 01:53 Patient Plan: Admission Patient Problems: Current Active Problems Problem Status Onset Dehydration Acute Enteritis Acute Leukocytosis Acute UTI (urinary tract infection) Acute Condition: STABLE
[2019-02-16] MEDS ORDERED: Alum-Mag Hydrox-Simethicone Susp (30 mL) PO STA (21:49)
[2019-02-16] MEDS ORDERED: Atrop/Hyosc/Scopal/PB Elixir (120 ml) PO STA (21:49)
[2019-02-16] MEDS ORDERED: Sodium Chloride 0.9% 1,000 ML IV STA (21:49)
[2019-02-16 22:28] LABS: BASO # 0.05 K/mm3 (0.0-2.0); BASO % 0.3 % (0.0-3.0); EOS % 0.2 % (1.5-5.0); HEMOGLOBIN 17.2 g/dL (12.0-16.0); LYMPH # 3.4 (1.2-3.4); LYMPH % 22.6 % (22.0-35.0); MEAN CELL VOLUME 81.6 fl (80.0-105.0); MEAN CORPUSCULAR HGB CONC 34.3 g/dl (31.0-37.0); MEAN PLATELET VOLUME 10.7 fl (7.0-11.0); MONO # 1.2 (0.1-0.6); MONO % 7.6 % (1.0-6.0); RBC 6.14 10^6/uL (3.5-6.1); RED CELL DISTRIBUTION WIDTH 13.1 % (11.5-14.5)
[2019-02-16 22:39] LABS: PH,URINE 6.5 (4.7-8.0); URINE BILIRUBIN NEGATIVE (NEGATIVE); URINE BLOOD LARGE (NEGATIVE); URINE GLUCOSE (UA) NEGATIVE (NEGATIVE); URINE LEUKOCYTE ESTERASE MODERATE Leu/uL (NEGATIVE); URINE PROTEIN 100 mg/dL (<30 mg/dL)
[2019-02-16 22:46] LABS: URINE APPEARANCE CLEAR (CLEAR); URINE COLOR LIGHT RED (YELLOW); URINE RBC TNTC /hpf (0-2)
[2019-02-16 22:47] LABS: URINE BACTERIA SMALL /hpf
[2019-02-16 22:47] LABS: TROPONIN I < 0.01 ng/mL
[2019-02-16 22:50] LABS: ALB/GLOB RATIO 1.1 (1.1-1.8); ALBUMIN 4.4 g/dL (3.0-4.8); ALT/SGPT 31 U/L (7-56); AST/SGOT 53 U/L (14-36); BLOOD UREA NITROGEN 11 mg/dL (7-21); CALCIUM 9.5 mg/dL (8.4-10.5); GFR NON-AFRICAN AMERICAN > 60; LIPASE 133 U/L (23-300)
[2019-02-16 22:53] LABS: FREE T4 1.56 ng/dL (0.78-2.19)
[2019-02-16] MEDS ORDERED: cefTRIAXone 1 gm 1 GM/100 ML BAG IVPB STA (22:54)
[2019-02-17] MEDS ORDERED: Iohexol 350 MG/100 ML VIAL ONE (00:11)
--- NOTE | 2019-02-17 02:14 | CP.PCM.HP ---
<DerejeManuel - Last Filed: 02/17/19 03:31> History of Present Illness - History of Present Illness History of Present Illness: PGY-1 History and Physical for Dr. Mcmahan Patient is a 23 year old obese female with no past significant medical history presenting to the ED with diarrhea, chills, and generalized abdominal pain for the past day. She drank an organic homemade smoothie yesterday afternoon and soon after had brown, watery, non-bloody diarrhea with associated generalized abdominal pain. Patient has been seen in the ED 3x over the past week for evaluation of herpes labialis to the lower lip and upper respiratory infection. She was given tamiflu which she took for 2 days that was then switched to azithromycin and medrol dose pack. She states she took azithromycin for 2 days with no improvement of symptoms. She continues to complain of pain to the lower lip at the lesion site. She also endorses chills, loose stools, and 1 episode of NBNB vomiting in the ED. No fevers, headaches, chest pain, palpitations, sob, cough, constipation, dysuria, hematemesis, hematochezia, or melena. 12 pt ROS reviewed and otherwise negative. PMHx: herpes labialis (lower lip)--2 lesions noted last week, the first on 02/08 and the 2nd on 02/10 PSHx: denies Allergies: NKDA Home Meds: as per EMR Family Hx: noncontributory Social Hx: denies alcohol, tobacco, or illicit drug use. Currently on her period, began on Friday, normal flow. PMD: None Present on Admission - Present on Admission Any Indicators Present on Admission: No Review of Systems - Review of Systems All systems: reviewed and no additional remarkable complaints except Review of Systems: as per HPI Past Patient History - Infectious Disease Hx of Infectious Diseases: None - Past Social History Smoking Status: Never Smoked - CARDIAC Hx Cardiac Disorders: No - PSYCHIATRIC Hx Substance Use: No - SURGICAL HISTORY Hx Surgeries: No Meds Allergies/Adverse Reactions: Allergies Allergy/AdvReac Type Severity Reaction Status Date / Time No Known Allergies Allergy Verified 02/16/19 21:23 Physical Exam - Constitutional Appears: Non-toxic, No Acute Distress - Head Exam Head Exam: ATRAUMATIC, NORMAL INSPECTION, NORMOCEPHALIC - Eye Exam Eye Exam: EOMI, Normal appearance Pupil Exam: NORMAL ACCOMODATION - ENT Exam ENT Exam: Mucous Membranes Dry Additional comments: herpes labialis lesion x 2 noted to lower lip lip fissures - Neck Exam Neck exam: Positive for: Full Rom, Normal Inspection - Respiratory Exam Respiratory Exam: Clear to Auscultation Bilateral, NORMAL BREATHING PATTERN. absent: Accessory Muscle Use, Rales, Rhonchi, Wheezes, Respiratory Distress, Stridor - Cardiovascular Exam Cardiovascular Exam: REGULAR RHYTHM, +S1, +S2 - GI/Abdominal Exam GI & Abdominal Exam: Normal Bowel Sounds, Soft. absent: Distended, Firm, Guarding, Rebound, Rigid, Tenderness - Extremities Exam Extremities exam: Positive for: full ROM, normal capillary refill, normal inspection, pedal pulses present. Negative for: calf tenderness, pedal edema - Back Exam Back exam: NORMAL INSPECTION - Neurological Exam Neurological exam: Alert, CN II-XII Intact, Oriented x3 - Skin Skin Exam: Dry, Intact, Normal Color, Warm Results - Vital Signs Recent Vital Signs: Last Vital Signs Temp 98.6 F 02/16/19 21:24 Pulse 93 H 02/16/19 21:39 Resp 19 02/16/19 21:24 BP 153/107 H 02/16/19 21:24 Pulse Ox 98 02/16/19 21:24 - Labs Result Diagrams: 02/16/19 22:21 02/16/19 22:21 Labs: Laboratory Results - last 24 hr 02/16/19 02/16/19 02/16/19 22:21 22:21 22:21 WBC 15.2 H D RBC 6.14 H Hgb 17.2 H Hct 50.1 H MCV 81.6 MCH 28.0 MCHC 34.3 RDW 13.1 Plt Count 289 MPV 10.7 Neut % (Auto) 69.3 H Lymph % (Auto) 22.6 [place] % (Auto) 7.6 H Eos % (Auto) 0.2 L Baso % (Auto) 0.3 Lymph # (Auto) 3.4 [place] # (Auto) 1.2 H Eos # (Auto) 0.0 Baso # (Auto) 0.05 Absolute Neuts (auto) 10.53 H Sodium 139 Potassium 4.3 Chloride 100 Carbon Dioxide 27 Anion Gap 16 BUN 11 Creatinine 0.5 L Est GFR ( Amer) > 60 Est GFR (Non-Af Amer) > 60 Random Glucose 187 H Calcium 9.5 Phosphorus 3.2 Magnesium 2.1 Total Bilirubin 0.5 AST 53 H D ALT 31 Alkaline Phosphatase 71 Troponin I < 0.01 Total Protein 8.6 H Albumin 4.4 Globulin 4.1 Albumin/Globulin Ratio 1.1 Lipase 133 Free T4 1.56 TSH 3rd Generation 0.82 Urine Color Urine Appearance Urine pH Ur Specific [place] Urine Protein Urine Glucose (UA) Urine Ketones Urine Blood Urine Nitrate Urine Bilirubin Urine Urobilinogen Ur Leukocyte Esterase Urine RBC Urine WBC Ur Epithelial Cells Urine Bacteria 02/16/19 22:35 WBC RBC Hgb Hct MCV MCH MCHC RDW Plt Count MPV Neut % (Auto) Lymph % (Auto) [place] % (Auto) Eos % (Auto) Baso % (Auto) Lymph # (Auto) [place] # (Auto) Eos # (Auto) Baso # (Auto) Absolute Neuts (auto) Sodium Potassium Chloride Carbon Dioxide Anion Gap BUN Creatinine Est GFR ( Amer) Est GFR (Non-Af Amer) Random Glucose Calcium Phosphorus Magnesium Total Bilirubin AST ALT Alkaline Phosphatase Troponin I Total Protein Albumin Globulin Albumin/Globulin Ratio Lipase Free T4 TSH 3rd Generation Urine Color Light red Urine Appearance Clear Urine pH 6.5 Ur Specific [place] <= 1.005 Urine Protein 100 H Urine Glucose (UA) Negative Urine Ketones Negative Urine Blood Large H Urine Nitrate Positive H Urine Bilirubin Negative Urine Urobilinogen 1.0 H Ur Leukocyte Esterase Moderate H Urine RBC Tntc H Urine WBC 10 - 15 H Ur Epithelial Cells 10 - 12 H Urine Bacteria Small Assessment & Plan - Assessment and Plan (Free Text) Assessment: Patient is a 23 year old obese female with no past significant medical history presenting to the ED with diarrhea, chills, and generalized abdominal pain for the past day. Plan: UTI -UA positive -WBC 15.2 -f/u Blood culture, urine culture -s/p rocephin 1g x 1 in ED -c/w rocephin 1 g daily Generalized abdominal pain, diarrhea -likely 2/2 enteritis -lipase wnl -CT abdomen/pelvis: uncomplicated enteritis noted -zofran 4 mg q4 prn for nausea -protonix 40 mg IVP daily Dehydration -clinically dehydrated on exam -labs hemoconcentrated, Hb 17.2 -s/p NS bolus in ED -c/w NS @ 150cc/hr Herpes labialis -2 lesions noted to lower lip -pt endorses increased pain to lower lip -ID (Dr. Herring) was consulted on previous ED visit, pt was given valtrex 2 gm PO BID x 2 days (dispensed 02/15) and instructed to follow up within a week -viscous lidocaine TID prn applied to lesion site for pain -consider ID consult in the AM PPx, Diet, Disposition -DVT ppx: scds -GI ppx: protonix 40 mg IVP daily -Diet: HHD Case discussed with Dr. Marj Reyez DO, PGY-1 <Carmen Mcmahan - Last Filed: 02/17/19 04:45> Results - Vital Signs Recent Vital Signs: Last Vital Signs Temp 98.6 F 02/16/19 21:24 Pulse 78 02/17/19 02:28 Resp 16 02/17/19 02:28 BP 126/98 H 02/17/19 02:28 Pulse Ox 100 02/17/19 02:28 - Labs Result Diagrams: 02/16/19 22:21 02/16/19 22:21 Labs: Laboratory Results - last 24 hr 02/16/19 02/16/19 02/16/19 22:21 22:21 22:21 WBC 15.2 H D RBC 6.14 H Hgb 17.2 H Hct 50.1 H MCV 81.6 MCH 28.0 MCHC 34.3 RDW 13.1 Plt Count 289 MPV 10.7 Neut % (Auto) 69.3 H Lymph % (Auto) 22.6 [place] % (Auto) 7.6 H Eos % (Auto) 0.2 L Baso % (Auto) 0.3 Lymph # (Auto) 3.4 [place] # (Auto) 1.2 H Eos # (Auto) 0.0 Baso # (Auto) 0.05 Absolute Neuts (auto) 10.53 H Sodium 139 Potassium 4.3 Chloride 100 Carbon Dioxide 27 Anion Gap 16 BUN 11 Creatinine 0.5 L Est GFR ( Amer) > 60 Est GFR (Non-Af Amer) > 60 Random Glucose 187 H Calcium 9.5 Phosphorus 3.2 Magnesium 2.1 Total Bilirubin 0.5 AST 53 H D ALT 31 Alkaline Phosphatase 71 Troponin I < 0.01 Total Protein 8.6 H Albumin 4.4 Globulin 4.1 Albumin/Globulin Ratio 1.1 Lipase 133 Free T4 1.56 TSH 3rd Generation 0.82 Urine Color Urine Appearance Urine pH Ur Specific [place] Urine Protein Urine Glucose (UA) Urine Ketones Urine Blood Urine Nitrate Urine Bilirubin Urine Urobilinogen Ur Leukocyte Esterase Urine RBC Urine WBC Ur Epithelial Cells Urine Bacteria 02/16/19 22:35 WBC RBC Hgb Hct MCV MCH MCHC RDW Plt Count MPV Neut % (Auto) Lymph % (Auto) [place] % (Auto) Eos % (Auto) Baso % (Auto) Lymph # (Auto) [place] # (Auto) Eos # (Auto) Baso # (Auto) Absolute Neuts (auto) Sodium Potassium Chloride Carbon Dioxide Anion Gap BUN Creatinine Est GFR ( Amer) Est GFR (Non-Af Amer) Random Glucose Calcium Phosphorus Magnesium Total Bilirubin AST ALT Alkaline Phosphatase Troponin I Total Protein Albumin Globulin Albumin/Globulin Ratio Lipase Free T4 TSH 3rd Generation Urine Color Light red Urine Appearance Clear Urine pH 6.5 Ur Specific [place] <= 1.005 Urine Protein 100 H Urine Glucose (UA) Negative Urine Ketones Negative Urine Blood Large H Urine Nitrate Positive H Urine Bilirubin Negative Urine Urobilinogen 1.0 H Ur Leukocyte Esterase Moderate H Urine RBC Tntc H Urine WBC 10 - 15 H Ur Epithelial Cells 10 - 12 H Urine Bacteria Small Attending/Attestation - Attestation I have personally seen and examined this patient.: Yes I have fully participated in the care of the patient.: Yes I have reviewed all pertinent clinical information: Yes Notes (Text): 02/17/19 04:13 Pt seen with the resident by the bedside Case discussed in detail O/E Pt appears to be dehydrated clinically,with diminished skin turgor. Agree with documentation,assessment and plan of treatment.
[2019-02-17] MEDS ORDERED: Sodium Chloride 0.9% 1,000 ML IV SCH (02:15)
[2019-02-17] MEDS: Sodium Chloride 0.9% 1,000 ML IV SCH ×2 (03:48→09:11)
[2019-02-17 05:41] LABS: VENOUS BLOOD GAS BASE EXCESS 0.8 mmol/L (0.0-2.0); VENOUS BLOOD GAS PO2 80 mm/Hg (30-55); VENOUS BLOOD PH 7.39 (7.32-7.43)
[2019-02-17 06:37] LABS: WHITE BLOOD COUNT 15.2 10^3/uL (4.5-11.0)
[2019-02-17] MEDS: cefTRIAXone 1 gm 1 GM/100 ML BAG IVPB SCH (09:11)
--- NOTE | 2019-02-17 09:25 | CT ---
Date of service: 02/17/2019 PROCEDURE: CT Abdomen and Pelvis with contrast HISTORY: vomiting, diarrhea, generalized abd pain COMPARISON: None. TECHNIQUE: Intravenous contrast dose: Radiation dose: Total exam DLP = <inf_radiation_dlp> mGy-cm. This CT exam was performed using one or more of the following dose reduction techniques: Automated exposure control, adjustment of the mA and/or kV according to patient size, and/or use of iterative reconstruction technique. FINDINGS: LOWER THORAX: Unremarkable. LIVER: Unremarkable. No gross lesion or ductal dilatation. GALLBLADDER AND BILE DUCTS: Unremarkable. PANCREAS: Unremarkable. No gross lesion or ductal dilatation. SPLEEN: Unremarkable. ADRENALS: Unremarkable. No mass. KIDNEYS AND URETERS: Unremarkable. No hydronephrosis. No solid mass. VASCULATURE: Unremarkable. No aortic aneurysm. No atherosclerotic calcification or mural plaque present. BOWEL: Fluid-filled small bowel and right manny colon consistent with diarrheal state. APPENDIX: Normal appendix. PERITONEUM: Unremarkable. No free fluid. No free air. LYMPH NODES: Unremarkable. No enlarged lymph nodes. BLADDER: Unremarkable. REPRODUCTIVE: Unremarkable. BONES: No acute fracture. OTHER FINDINGS: None. IMPRESSION: No significant or acute findings to account for/ related to the clinical presentation. Additional benign and/or incidental findings described above. Concordant results (preliminary interpretation) provided by [employer]. Procedure Completed: 00:30. Preliminary Report: Interpreted and electronically signed: 01:50. Final Interpretation: 09:21.
--- NOTE | 2019-02-17 09:49 | CARD ---
APPROVED REPORT Date of service: 02/16/2019 EKG Measurement Heart [id number] IN 126P-19 [id number] <Conclusion> Normal sinus rhythm Nonspecific T wave abnormality Abnormal ECG
--- NOTE | 2019-02-17 10:09 | RAD ---
Date of service: 02/16/2019 HISTORY: sob COMPARISON: 02/12/2019 TECHNIQUE: Chest PA and lateral views FINDINGS: LUNGS: No active pulmonary disease. PLEURA: No significant pleural effusion identified. No pneumothorax apparent. CARDIOVASCULAR: No aortic atherosclerotic calcification present. Normal cardiac size. No pulmonary vascular congestion. OSSEOUS STRUCTURES: No significant abnormalities. VISUALIZED UPPER ABDOMEN: Normal. OTHER FINDINGS: None. IMPRESSION: No active disease.
[2019-02-17 14:25] LABS: BASO # 0.05 K/mm3 (0.0-2.0); BASO % 0.5 % (0.0-3.0); EOS # 0.1 (0.0-0.7); EOS % 0.7 % (1.5-5.0); LYMPH # 3.4 (1.2-3.4); LYMPH % 34.3 % (22.0-35.0); MEAN CORPUSCULAR HEMOGLOBIN 27.7 pg (25.0-35.0); MEAN CORPUSCULAR HGB CONC 33.3 g/dl (31.0-37.0); MEAN PLATELET VOLUME 10.4 fl (7.0-11.0); MONO # 1.1 (0.1-0.6); MONO % 11.6 % (1.0-6.0); RBC 5.46 10^6/uL (3.5-6.1); RED CELL DISTRIBUTION WIDTH 13.2 % (11.5-14.5); WHITE BLOOD COUNT 9.9 10^3/uL (4.5-11.0)
[2019-02-17 14:34] LABS: HEMOGLOBIN 15.1 g/dL (12.0-16.0)
[2019-02-17 14:48] LABS: BLOOD UREA NITROGEN 8 mg/dL (7-21); CALCIUM 8.8 mg/dL (8.4-10.5); GFR NON-AFRICAN AMERICAN > 60
[2019-02-18 07:18] LABS: BASO # 0.06 K/mm3 (0.0-2.0); BASO % 0.5 % (0.0-3.0); EOS # 0.2 (0.0-0.7); EOS % 1.5 % (1.5-5.0); HEMOGLOBIN 15.4 g/dL (12.0-16.0); LYMPH # 4.4 (1.2-3.4); LYMPH % 37.5 % (22.0-35.0); MEAN CELL VOLUME 82.7 fl (80.0-105.0); MEAN CORPUSCULAR HEMOGLOBIN 27.4 pg (25.0-35.0); MEAN CORPUSCULAR HGB CONC 33.1 g/dl (31.0-37.0); MEAN PLATELET VOLUME 10.9 fl (7.0-11.0); MONO # 1.4 (0.1-0.6); MONO % 12.1 % (1.0-6.0); RBC 5.62 10^6/uL (3.5-6.1); RED CELL DISTRIBUTION WIDTH 13.2 % (11.5-14.5); WHITE BLOOD COUNT 11.8 10^3/uL (4.5-11.0)
[2019-02-18 07:34] LABS: ALB/GLOB RATIO 1.1 (1.1-1.8); ALBUMIN 3.9 g/dL (3.0-4.8); ALT/SGPT 34 U/L (7-56); AST/SGOT 50 U/L (14-36); BLOOD UREA NITROGEN 10 mg/dL (7-21); CALCIUM 9.3 mg/dL (8.4-10.5); GFR NON-AFRICAN AMERICAN > 60
[2019-02-18 07:45] VITALS: BP 127/84; PULSE 82; RESP 20; TEMP 98; O2SAT 98
[2019-02-18] MEDS: cefTRIAXone 1 gm 1 GM/100 ML BAG IVPB SCH (09:23)
--- NOTE | 2019-02-18 11:06 | CP.PCM.DIS ---
<Misael Drew - Last Filed: 02/18/19 13:46> Provider - Provider Date of Admission: 02/17/19 02:19 Attending physician: Facundo Matthews MD Primary care physician: Dr. Mcmahan Consults: 02/18/19 07:07 Diabetic Education Referral Routine Comment: Physician Instructions: Reason For Exam: new onset DM2 Time Spent in preparation of Discharge (in minutes): 35 Hospital Course - Lab Results Lab Results: Micro Results 02/16/19 22:40 Blood Blood Culture - Preliminary NO GROWTH AFTER 24 HOURS 02/16/19 22:10 Blood Blood Culture - Preliminary NO GROWTH AFTER 24 HOURS Most Recent Lab Values WBC 11.8 10^3/uL (4.5-11.0) H 02/18/19 07:00 RBC 5.62 10^6/uL (3.5-6.1) 02/18/19 07:00 Hgb 15.4 g/dL (12.0-16.0) 02/18/19 07:00 Hct 46.5 % (36.0-48.0) 02/18/19 07:00 MCV 82.7 fl (80.0-105.0) 02/18/19 07:00 MCH 27.4 pg (25.0-35.0) 02/18/19 07:00 MCHC 33.1 g/dl (31.0-37.0) 02/18/19 07:00 RDW 13.2 % (11.5-14.5) 02/18/19 07:00 Plt Count 279 10^3/uL (120.0-450.0) 02/18/19 07:00 MPV 10.9 fl (7.0-11.0) 02/18/19 07:00 Neut % (Auto) 48.4 % (50.0-68.0) L 02/18/19 07:00 Lymph % (Auto) 37.5 % (22.0-35.0) H 02/18/19 07:00 Potter % (Auto) 12.1 % (1.0-6.0) H 02/18/19 07:00 Eos % (Auto) 1.5 % (1.5-5.0) 02/18/19 07:00 Baso % (Auto) 0.5 % (0.0-3.0) 02/18/19 07:00 Lymph # (Auto) 4.4 (1.2-3.4) H 02/18/19 07:00 Potter # (Auto) 1.4 (0.1-0.6) H 02/18/19 07:00 Eos # (Auto) 0.2 (0.0-0.7) 02/18/19 07:00 Baso # (Auto) 0.06 K/mm3 (0.0-2.0) 02/18/19 07:00 Absolute Neuts (auto) 5.70 (1.4-6.5) 02/18/19 07:00 pO2 80 mm/Hg (30-55) H 02/17/19 05:05 VBG pH 7.39 (7.32-7.43) 02/17/19 05:05 VBG pCO2 43.0 (40-60) 02/17/19 05:05 VBG HCO3 26.0 mmol/l (21-28) 02/17/19 05:05 VBG Total CO2 27.3 mmol.L (22-28) 02/17/19 05:05 VBG O2 Sat (Calc) 97.7 % (40-65) H 02/17/19 05:05 VBG Base Excess 0.8 mmol/L (0.0-2.0) 02/17/19 05:05 VBG Potassium 3.9 mmol/L (3.6-5.2) 02/17/19 05:05 Sodium 139.0 mmol/L (132-148) 02/17/19 05:05 Chloride 105.0 mmol/L (98-107) 02/17/19 05:05 Glucose 121 mg/dl (65-105) H 02/17/19 05:05 Lactate 1.0 mmol/L (0.7-2.1) 02/17/19 05:05 FiO2 21.0 % 02/17/19 05:05 Sodium 140 mmol/L (132-148) 02/18/19 07:00 Potassium 4.0 mmol/L (3.6-5.0) 02/18/19 07:00 Chloride 104 mmol/L (98-107) 02/18/19 07:00 Carbon Dioxide 28 mmol/L (21-33) 02/18/19 07:00 Anion Gap 13 (10-20) 02/18/19 07:00 BUN 10 mg/dL (7-21) 02/18/19 07:00 Creatinine 0.6 mg/dl (0.7-1.2) L 02/18/19 07:00 Est GFR ( Amer) > 60 02/18/19 07:00 Est GFR (Non-Af Amer) > 60 02/18/19 07:00 Random Glucose 113 mg/dL (70-110) H 02/18/19 07:00 Hemoglobin A1c 7.3 % (4.2-6.5) H 02/17/19 14:10 Calcium 9.3 mg/dL (8.4-10.5) 02/18/19 07:00 Phosphorus 3.4 mg/dL (2.5-4.5) 02/18/19 07:00 Magnesium 1.8 mg/dL (1.7-2.2) 02/18/19 07:00 Total Bilirubin 0.4 mg/dL (0.2-1.3) 02/18/19 07:00 AST 50 U/L (14-36) H 02/18/19 07:00 ALT 34 U/L (7-56) 02/18/19 07:00 Alkaline Phosphatase 66 U/L (38-126) 02/18/19 07:00 Troponin I < 0.01 ng/mL 02/16/19 22:21 Total Protein 7.5 g/dL (5.8-8.3) 02/18/19 07:00 Albumin 3.9 g/dL (3.0-4.8) 02/18/19 07:00 Globulin 3.7 gm/dL 02/18/19 07:00 Albumin/Globulin Ratio 1.1 (1.1-1.8) 02/18/19 07:00 Lipase 133 U/L (23-300) 02/16/19 22:21 Free T4 1.56 ng/dL (0.78-2.19) 02/16/19 22:21 TSH 3rd Generation 0.82 mIU/mL (0.46-4.68) 02/16/19 22:21 Venous Blood Potassium 3.9 mmol/L (3.6-5.2) 02/17/19 05:05 Urine Color Light red (YELLOW) 02/16/19 22:35 Urine Appearance Clear (CLEAR) 02/16/19 22:35 Urine pH 6.5 (4.7-8.0) 02/16/19 22:35 Ur Specific [place] <= 1.005 (1.005-1.035) 02/16/19 22:35 Urine Protein 100 mg/dL (<30 mg/dL) H 02/16/19 22:35 Urine Glucose (UA) Negative mg/dL (NEGATIVE) 02/16/19 22:35 Urine Ketones Negative mg/dL (NEGATIVE) 02/16/19 22:35 Urine Blood Large (NEGATIVE) H 02/16/19 22:35 Urine Nitrate Positive (NEGATIVE) H 02/16/19 22:35 Urine Bilirubin Negative (NEGATIVE) 02/16/19 22:35 Urine Urobilinogen 1.0 E.U./dL (<1 E.U./dL) H 02/16/19 22:35 Ur Leukocyte Esterase Moderate Jaime/uL (NEGATIVE) H 02/16/19 22:35 Urine RBC Tntc /hpf (0-2) H 02/16/19 22:35 Urine WBC 10 - 15 /hpf (0-6) H 02/16/19 22:35 Ur Epithelial Cells 10 - 12 /hpf (0-5) H 02/16/19 22:35 Urine Bacteria Small /hpf (NONE) 02/16/19 22:35 - Hospital Course Hospital Course: Misael Drew, PGY-1 Discharge Summary for Hospitalist Service Patient is a 23 year old obese female with no past significant medical history presenting to the ED with diarrhea, chills, and generalized abdominal pain for the past day. She drank an organic homemade smoothie yesterday afternoon and soon after had brown, watery, non-bloody diarrhea with associated generalized abdominal pain. Patient has been seen in the ED 3x over the past week for evaluation of herpes labialis to the lower lip and upper respiratory infection. Patient was admitted for diarrhea, UTI and abdominal pain. During the course of her hospital stay, she was treated with Lidocaine 2% for her lip sore, ceftriaxone for her UTI, zofran, and protonix. Diarrhea resolved. CT abdomen/pelvis and CXR showed no acute findings. EKG showed NSR and no ST changes. Hemoglobin A1C was found to be 7.3. On day of discharge, patient was given medications of Bactrim and Protonix and received diabetic education due to a Hgb a1c of 7.3. Patient was referred to [facility] next week for an appointment, which patient understood. Patient was also informed that no culture was taken of lip lesions, and that if she would like further workup for STD's as requested, she should follow up at her clinic visit next week. Patient course was reviewed in detail and all questions were answered to patient satisfaction. She was instructed to follow up at [facility]. She was instructed to return to ED for worsening or newly concerning symptoms. Patient is medically stable for discharge. A work note was provided. Patient seen, case reviewed and plan approved by Dr. Matthews. Discharge Exam - Additional Findings Additional findings: - Constitutional Appears: Non-toxic, No Acute Distress - Head Exam Head Exam: ATRAUMATIC, NORMAL INSPECTION, NORMOCEPHALIC - Eye Exam Eye Exam: EOMI, Normal appearance Pupil Exam: NORMAL ACCOMODATION - ENT Exam ENT Exam: Mucous Membranes Dry Additional comments: herpes labialis lesion x 2 noted to lower lip lip fissures - Neck Exam Neck exam: Positive for: Full Rom, Normal Inspection - Respiratory Exam Respiratory Exam: Clear to Auscultation Bilateral, NORMAL BREATHING PATTERN. absent: Accessory Muscle Use, Rales, Rhonchi, Wheezes, Respiratory Distress, Stridor - Cardiovascular Exam Cardiovascular Exam: REGULAR RHYTHM, +S1, +S2 - GI/Abdominal Exam GI & Abdominal Exam: Normal Bowel Sounds, Soft. absent: Distended, Firm, Guarding, Rebound, Rigid, Tenderness - Extremities Exam Extremities exam: Positive for: full ROM, normal capillary refill, normal inspection, pedal pulses present. Negative for: calf tenderness, pedal edema - Back Exam Back exam: NORMAL INSPECTION - Neurological Exam Neurological exam: Alert, CN II-XII Intact, Oriented x3 - Skin Skin Exam: Dry, Intact, Normal Color, Warm Discharge Plan - Discharge Medications Prescriptions: Pantoprazole [Protonix] 40 mg PO DAILY #10 ect Sulfamethoxazole/Trimethoprim [Bactrim DS 800 mg-160 mg] 1 tab PO DAILY #3 tab - Follow Up Plan Condition: STABLE Disposition: HOME/ ROUTINE Instructions: Diarrhea in Adolescents and Adults, Type 2 Diabetes, Dehydration (DC), Urinary Tract Infection in Women (DC), Dysuria (GEN) Additional Instructions: Please take your anti-reflux medication Protonix daily as well as your new antibiotic for 3 days for urinary tract infection. Please follow a diabetic modified diet. A work-note has been provided. Please follow up with Dr. Mcmahan at [facility] for any diabetic medications. Your appointment has been made for FridayFebruary 26 at 2:30 pm. Please arrive half an hour early with ID and insurance card. Please follow up for results of urine culture at that time. Please visit nearest emergency room for worsening or newly concerning symptoms. Referrals: Carmen Mcmahan MD [Medical Doctor] - <Facundo Matthews - Last Filed: 02/18/19 14:13> Provider - Provider Date of Admission: 02/17/19 02:19 Attending physician: Facundo Matthews MD Consults: 02/18/19 07:07 Diabetic Education Referral Routine Comment: Physician Instructions: Reason For Exam: new onset DM2 Hospital Course - Lab Results Lab Results: Micro Results 02/16/19 22:40 Blood Blood Culture - Preliminary NO GROWTH AFTER 24 HOURS 02/16/19 22:10 Blood Blood Culture - Preliminary NO GROWTH AFTER 24 HOURS Most Recent Lab Values WBC 11.8 10^3/uL (4.5-11.0) H 02/18/19 07:00 RBC 5.62 10^6/uL (3.5-6.1) 02/18/19 07:00 Hgb 15.4 g/dL (12.0-16.0) 02/18/19 07:00 Hct 46.5 % (36.0-48.0) 02/18/19 07:00 MCV 82.7 fl (80.0-105.0) 02/18/19 07:00 MCH 27.4 pg (25.0-35.0) 02/18/19 07:00 MCHC 33.1 g/dl (31.0-37.0) 02/18/19 07:00 RDW 13.2 % (11.5-14.5) 02/18/19 07:00 Plt Count 279 10^3/uL (120.0-450.0) 02/18/19 07:00 MPV 10.9 fl (7.0-11.0) 02/18/19 07:00 Neut % (Auto) 48.4 % (50.0-68.0) L 02/18/19 07:00 Lymph % (Auto) 37.5 % (22.0-35.0) H 02/18/19 07:00 Potter % (Auto) 12.1 % (1.0-6.0) H 02/18/19 07:00 Eos % (Auto) 1.5 % (1.5-5.0) 02/18/19 07:00 Baso % (Auto) 0.5 % (0.0-3.0) 02/18/19 07:00 Lymph # (Auto) 4.4 (1.2-3.4) H 02/18/19 07:00 Potter # (Auto) 1.4 (0.1-0.6) H 02/18/19 07:00 Eos # (Auto) 0.2 (0.0-0.7) 02/18/19 07:00 Baso # (Auto) 0.06 K/mm3 (0.0-2.0) 02/18/19 07:00 Absolute Neuts (auto) 5.70 (1.4-6.5) 02/18/19 07:00 pO2 80 mm/Hg (30-55) H 02/17/19 05:05 VBG pH 7.39 (7.32-7.43) 02/17/19 05:05 VBG pCO2 43.0 (40-60) 02/17/19 05:05 VBG HCO3 26.0 mmol/l (21-28) 02/17/19 05:05 VBG Total CO2 27.3 mmol.L (22-28) 02/17/19 05:05 VBG O2 Sat (Calc) 97.7 % (40-65) H 02/17/19 05:05 VBG Base Excess 0.8 mmol/L (0.0-2.0) 02/17/19 05:05 VBG Potassium 3.9 mmol/L (3.6-5.2) 02/17/19 05:05 Sodium 139.0 mmol/L (132-148) 02/17/19 05:05 Chloride 105.0 mmol/L (98-107) 02/17/19 05:05 Glucose 121 mg/dl (65-105) H 02/17/19 05:05 Lactate 1.0 mmol/L (0.7-2.1) 02/17/19 05:05 FiO2 21.0 % 02/17/19 05:05 Sodium 140 mmol/L (132-148) 02/18/19 07:00 Potassium 4.0 mmol/L (3.6-5.0) 02/18/19 07:00 Chloride 104 mmol/L (98-107) 02/18/19 07:00 Carbon Dioxide 28 mmol/L (21-33) 02/18/19 07:00 Anion Gap 13 (10-20) 02/18/19 07:00 BUN 10 mg/dL (7-21) 02/18/19 07:00 Creatinine 0.6 mg/dl (0.7-1.2) L 02/18/19 07:00 Est GFR ( Amer) > 60 02/18/19 07:00 Est GFR (Non-Af Amer) > 60 02/18/19 07:00 Random Glucose 113 mg/dL (70-110) H 02/18/19 07:00 Hemoglobin A1c 7.3 % (4.2-6.5) H 02/17/19 14:10 Calcium 9.3 mg/dL (8.4-10.5) 02/18/19 07:00 Phosphorus 3.4 mg/dL (2.5-4.5) 02/18/19 07:00 Magnesium 1.8 mg/dL (1.7-2.2) 02/18/19 07:00 Total Bilirubin 0.4 mg/dL (0.2-1.3) 02/18/19 07:00 AST 50 U/L (14-36) H 02/18/19 07:00 ALT 34 U/L (7-56) 02/18/19 07:00 Alkaline Phosphatase 66 U/L (38-126) 02/18/19 07:00 Troponin I < 0.01 ng/mL 02/16/19 22:21 Total Protein 7.5 g/dL (5.8-8.3) 02/18/19 07:00 Albumin 3.9 g/dL (3.0-4.8) 02/18/19 07:00 Globulin 3.7 gm/dL 02/18/19 07:00 Albumin/Globulin Ratio 1.1 (1.1-1.8) 02/18/19 07:00 Lipase 133 U/L (23-300) 02/16/19 22:21 Free T4 1.56 ng/dL (0.78-2.19) 02/16/19 22:21 TSH 3rd Generation 0.82 mIU/mL (0.46-4.68) 02/16/19 22:21 Venous Blood Potassium 3.9 mmol/L (3.6-5.2) 02/17/19 05:05 Urine Color Yellow (YELLOW) 02/18/19 10:30 Urine Appearance Clear (CLEAR) 02/18/19 10:30 Urine pH 7.0 (4.7-8.0) 02/18/19 10:30 Ur Specific [place] 1.010 (1.005-1.035) 02/18/19 10:30 Urine Protein Negative mg/dL (<30 mg/dL) 02/18/19 10:30 Urine Glucose (UA) Negative mg/dL (NEGATIVE) 02/18/19 10:30 Urine Ketones Negative mg/dL (NEGATIVE) 02/18/19 10:30 Urine Blood Large (NEGATIVE) H 02/18/19 10:30 Urine Nitrate Negative (NEGATIVE) 02/18/19 10:30 Urine Bilirubin Negative (NEGATIVE) 02/18/19 10:30 Urine Urobilinogen 0.2 E.U./dL (<1 E.U./dL) 02/18/19 10:30 Ur Leukocyte Esterase Negative Jaime/uL (NEGATIVE) 02/18/19 10:30 Urine RBC 20 - 25 /hpf (0-2) H 02/18/19 10:30 Urine WBC 1 - 3 /hpf (0-6) 02/18/19 10:30 Ur Epithelial Cells 4 - 5 /hpf (0-5) 02/18/19 10:30 Urine Bacteria Many /hpf (NONE) 02/18/19 10:30 Urine Other Fiber /hpf 02/18/19 10:30 Attending/Attestation - Attestation I have personally seen and examined this patient.: Yes I have fully participated in the care of the patient.: Yes I have reviewed all pertinent clinical information, including history, physical exam and plan: Yes Notes (Text): 04/11/19 14:07 23 year old female with no significant past medical history who presented with complaint of generalized aches, nausea, vomiting, diarrhea and abdominal pain. She had several ER visits for various complaints and treated with tamiflu, azithromycin and valtrex. On admission she was dehydrated and started on iv fluids. CT abd/pelvis was negative for acute findings. UA was suggestive of possible UTI and she was started on antibiotics. Her symptoms improved and her diet was advanced which she tolerated. A1c was elevated at 7.3. She was counselled on new onset diabetes. Did not start metformin in light of recent GI symptoms and she was recommended to follow up as outpatient to start metformin. Patient is discharged home to follow up at [facility]. Counselled on diabetes. Facundo Matthews MD Hospitalist.
[2019-02-18 11:53] LABS: URINE BILIRUBIN NEGATIVE (NEGATIVE); URINE BLOOD LARGE (NEGATIVE); URINE GLUCOSE (UA) NEGATIVE (NEGATIVE); URINE LEUKOCYTE ESTERASE NEGATIVE Leu/uL (NEGATIVE); URINE PROTEIN NEGATIVE mg/dL (<30 mg/dL); URINE UROBILINOGEN 0.2 E.U./dL (<1 E.U./dL)
[2019-02-18 11:54] LABS: URINE APPEARANCE CLEAR (CLEAR); URINE COLOR YELLOW (YELLOW)
[2019-02-18 12:05] LABS: URINE BACTERIA MANY /hpf; URINE RBC 20 - 25 /hpf (0-2)
== END 2019-02-18 14:05 | disposition home or self-care (01) ==
LOC: ED 20:50 → ERH 02-17 02:19 → 5RSO 02-17 03:29
PROVIDERS: ADMIT Internal Medicine; ATTEND Internal Medicine
DX: K52.9 Noninfective gastroenteritis and colitis, unspecified (principal); N39.0 Urinary tract infection, site not specified; E86.0 Dehydration; E11.9 Type 2 diabetes mellitus without complications; B00.1 Herpesviral vesicular dermatitis; E66.9 Obesity, unspecified; Z68.36 Body mass index [BMI] 36.0-36.9, adult
CPT/HCPCS: 36415; 71046; 74177; 80048; 80053; 81001; 81025; 82803; 83036; 83690; 83735; 84100; 84439; 84443; 84484; 85025; 87040; 87086; 93005; 96361; 96365; 96375; 96376; 99285; C9113; G0378; J0696; J2405; J7030; Q9967

== ENCOUNTER 2019-02-26 15:38 | Outpatient (CLI) | payer OTHER | END 2019-02-26 15:39 | disposition home or self-care (01) | LOC: LAB 15:38 ==